=== PATIENT | female | born 1960 | race Caucasian/White ===

== ENCOUNTER 2017-04-14 06:10 | Day surgery (SDC) | payer OTHER ==
[~2017-04-14] VITALS: Ht 172.7 cm; Wt 141.0 kg
[2017-04-14] VITALS (16 sets, daily range): BP systolic 139–173; BP diastolic 60–108; PULSE 76–88; RESP 10–24; Ht 172.7 cm; Wt 141.0 kg
[~2017-04-14 06:10] MED LIST: CLINDAMYCIN 600 MG/D5W (PMX) 50 ML IVPB ONE; SOD CHLORIDE 0.9% 1,000 ML IV SCH
[2017-04-14] MEDS ORDERED: CLINDAMYCIN 900 MG/50 ML D5W IVPB IVPB ONE (07:00)
[2017-04-14] MEDS ORDERED: CITA20TA6 PO (07:11)
[2017-04-14] MEDS ORDERED: HYD25 PO (07:11)
[2017-04-14] MEDS ORDERED: LEVO125T75 PO (07:11)
[2017-04-14] MEDS ORDERED: BUPIVACAINE 0.25% (MPF) 30 ML INJ ONE (07:53)
[2017-04-14] MEDS ORDERED: POLYMYXIN/BACITRACIN 1L IRRIG ONE (07:53)
[2017-04-14] MEDS ORDERED: ROCURONIUM 50 MG INJ ONE (08:04)
[2017-04-14] MEDS ORDERED: FENTAnyl 50 MCG/ML VIAL ONE ×2 (08:04→09:29)
[2017-04-14] MEDS ORDERED: MIDAZOLAM 1 MG/ML 2 ML INJ ONE (08:04)
[2017-04-14] MEDS ORDERED: CEFAZOLIN 1 GM INJ ONE (08:04)
[2017-04-14] MEDS ORDERED: NEOSTIGMINE 3 MG/3 ML SYRINGE ONE (08:04)
[2017-04-14] MEDS ORDERED: GLYCOPYRROLATE 0.4 MG INJ ONE (08:04)
[2017-04-14] MEDS ORDERED: PROPOFOL 20 ML ONE (08:04)
[2017-04-14] MEDS ORDERED: ONDANSETRON 4 MG INJ ONE (08:04)
[2017-04-14] MEDS ORDERED: DEXAMETHASONE 4 MG/ML 1 ML INJ ONE (08:05)
[2017-04-14] MEDS ORDERED: SUGAMMADEX SODIUM 200 MG/2 ML VIAL IV ONE (09:07)
--- NOTE | 2017-04-14 09:22 | OPR ---
Date/Time of Note Date/Time of Note DATE: 04/14/17 TIME: 09:18 Operative Report Procedure Date: Apr 14, 2017 Preoperative Diagnosis incarcerated ventral hernia Postoperative Diagnosis same Operation Performed 1. laparoscopic incarcerated ventral hernia repair 2. implantation of mesh cpt code 72767 3. therapeutic injection of subcutaneous marcaine cpt code 32918 Surgeon: Larry SEGURA Procedure Description Patient is taken to the OR and prepped and draped in usual sterile fashion. Surgical timeout was performed IV antibiotics are given. Transverse incision is made in the left upper quadrant. 5 mm optical trocar is used for optical entry. Left flank 12 mm optical trocar and left lower quadrant 5 mm optical trocar was placed under direct visualization. Upon initial inspection there is incarcerated ventral hernia. The incarcerated contents are reduced using laparoscopic harmonic. The defect is identified and closed using interrupted # 1 Prolene using Endo Close. Underlay mesh with approximately 45 cm of coverage in all directions is placed with 15 [address] mesh. There is good hemostasis. Ports were removed under direct visualization. Skin is closed and skin sindy. Therapeutic subcutaneous Marcaine injection is applied to all incisional sites. Dry dressings were applied. Larry SEGURA Apr 14, 2017 09:22
[2017-04-14] MEDS ORDERED: HYDROmorphONE (0.2 MG/ML) 10ML SYG IV ONE (09:28)
[2017-04-14] MEDS ORDERED: HYDROCODONE/APAP (5/325) TAB PO ONE (09:30)
[2017-04-14] MEDS ORDERED: HYDROmorphONE (0.2 MG/ML) 10ML SYG IV PRN (09:30)
[2017-04-14] MEDS ORDERED: FENTAnyl 50 MCG/ML VIAL IV PRN (09:30)
== END 2017-04-14 12:50 | disposition home or self-care (01) ==
LOC: SDS 06:10
PROVIDERS: ATTEND Surgery
DX: K43.6 Other and unspecified ventral hernia with obstruction, without gangrene (principal); E03.9 Hypothyroidism, unspecified; I10 Essential (primary) hypertension; E66.01 Morbid (severe) obesity due to excess calories; Z68.42 Body mass index [BMI] 45.0-49.9, adult; Z87.891 Personal history of nicotine dependence
CPT/HCPCS: 49653; C1781; J1100; J1170; J2250; J2405; J3010; Z7512; Z7610; J0690; J2710